=== PATIENT | male | born 1995 | race Caucasian/White ===

== ENCOUNTER 2016-09-05 20:20 | Emergency (ER) | payer OTHER ==
[~2016-09-05] VITALS: Ht 175.3 cm; Wt 74.1 kg
[2016-09-05 21:40] LABS: ADD MIUA? NO; BILIRUBIN NEGATIVE; BLOOD NEGATIVE; COLOR YELLOW ((YELLOW)); GLUCOSE (STRIP) NEGATIVE; KETONES 5; LEUKOCYTES NEGATIVE; NITRITE NEGATIVE; PROTEIN (STRIP) 30; SPECIFIC GRAVITY 1.032 (1.000-1.030); UCUL ADDED? NO; UROBILINOGEN 0.2 MG/DL (0.2-1.0)
[2016-09-05 21:53] LABS: ADD MEDTOX COMMENT Y; AMPHETAMINE NEGATIVE (500 ng/mL); BARBITURATES NEGATIVE (200 ng/mL); BENZODIAZEPINES NEGATIVE (150 ng/mL); COCAINE NEGATIVE (150 ng/mL); INTERNAL CONTROLS VALID? YES; METHADONE NEGATIVE (200 ng/mL); METHAMPHETAMINE NEGATIVE (500 ng/mL); OPIATES (MORPHINE) NEGATIVE (100 ng/mL); OXYCODONE NEGATIVE (100 ng/mL); PHENCYCLIDINE NEGATIVE (25 ng/mL); PROPOXYPHENE NEGATIVE (300 ng/mL); THC CANNABINOIDS PRESUMPTIVE POSITIVE (50 ng/mL); TRICYCLIC ANTIDEPRESSANTS NEGATIVE (300 ng/mL)
[2016-09-06 10:57] VITALS: BP 105/71
== END 2016-09-06 10:59 | disposition home or self-care (01) ==
LOC: EME 20:20
PROVIDERS: Emergency Medicine
DX: F91.9 Conduct disorder, unspecified (principal); R45.851 Suicidal ideations; F31.9 Bipolar disorder, unspecified; F90.9 Attention-deficit hyperactivity disorder, unspecified type
CPT/HCPCS: 81003; 84999; 90837; 99281; 99285

== ENCOUNTER 2016-12-10 18:26 | Emergency (ER) | payer SELFPAY ==
[~2016-12-10] VITALS: Ht 175.3 cm; Wt 79.3 kg
[2016-12-10 18:53] VITALS: BP 105/76
[2016-12-10] MEDS ORDERED: NAPROSYN500 MG PO (19:57)
== END 2016-12-10 20:51 | disposition home or self-care (01) ==
LOC: EME 18:26 → RME 18:26
DX: S62.306A Unspecified fracture of fifth metacarpal bone, right hand, initial encounter for closed fracture (principal); S60.511A Abrasion of right hand, initial encounter; W22.8XXA Striking against or struck by other objects, initial encounter; Z23 Encounter for immunization; Z72.0 Tobacco use
CPT/HCPCS: 73130; 99281; 99283

== ENCOUNTER 2017-10-23 01:06 | Emergency (ER) | payer SELFPAY ==
[~2017-10-23] VITALS: Ht 175.3 cm; Wt 90.9 kg
[~2017-10-23 01:06] MED LIST: NAPROSYN500 MG PO
[2017-10-23 02:36] VITALS: BP 121/64
== END 2017-10-23 02:37 | disposition home or self-care (01) ==
LOC: EME 01:06
DX: S93.401A Sprain of unspecified ligament of right ankle, initial encounter (principal); X50.9XXA Other and unspecified overexertion or strenuous movements or postures, initial encounter; F41.9 Anxiety disorder, unspecified; F32.9 Major depressive disorder, single episode, unspecified; F90.9 Attention-deficit hyperactivity disorder, unspecified type; F31.9 Bipolar disorder, unspecified; F17.200 Nicotine dependence, unspecified, uncomplicated; Z88.8 Allergy status to other drugs, medicaments and biological substances
CPT/HCPCS: 73610; 99281; 99284

== ENCOUNTER 2017-12-23 21:40 | Emergency (ER) | payer OTHER ==
[~2017-12-23] VITALS: Ht 175.3 cm; Wt 78.2 kg
[2017-12-24] MEDS ORDERED: TRAMADOL HCL50 MG PO (00:27)
[2017-12-24 00:35] VITALS: BP 124/65
== END 2017-12-24 00:36 | disposition home or self-care (01) ==
LOC: EME 21:40
DX: S63.501A Unspecified sprain of right wrist, initial encounter (principal); W19.XXXA Unspecified fall, initial encounter; Y93.61 Activity, american tackle football; Z88.8 Allergy status to other drugs, medicaments and biological substances
CPT/HCPCS: 73130; 99281; 99283